=== PATIENT | female | born 1980 | race Caucasian/White ===

== ENCOUNTER 2017-03-29 00:15 | Emergency (ER) | payer OTHER ==
[~2017-03-29] VITALS: Ht 170.1 cm; Wt 95.3 kg
[~2017-03-29 00:15] MED LIST: AUGMENTIN 875 M1 TAB PO; TRAMADOL HCL50 MG PO
[2017-03-29 00:26] VITALS: BP 131/89
[2017-03-29] MEDS ORDERED: KEFLEX500 M1 PO (01:21)
[2017-03-29] MEDS ORDERED: PREDNISONE20 M1 PO (01:21)
[2017-03-29] MEDS ORDERED: ULTRAM50 MG PO (01:28)
== END 2017-03-29 02:21 | disposition home or self-care (01) ==
LOC: ED 00:15
DX: T63.301A Toxic effect of unspecified spider venom, accidental (unintentional), initial encounter (principal); L29.8 Other pruritus; R19.7 Diarrhea, unspecified; R11.0 Nausea; Z91.040 Latex allergy status; Y92.9 Unspecified place or not applicable

== ENCOUNTER 2018-11-17 00:23 | Emergency (ER) | payer OTHER ==
[~2018-11-17] VITALS: Ht 165.1 cm; Wt 108.9 kg
[~2018-11-17 00:23] MED LIST changes: +KEFLEX500 M1 PO; +PREDNISONE20 M1 PO; +ULTRAM50 MG PO
[2018-11-17 00:25] VITALS: BP 165/90
[2018-11-17] MEDS ORDERED: LEVOTHYROXINE175 MCG PO (01:14)
[2018-11-17] MEDS ORDERED: NAPROSYN500 MG PO (01:46)
[2018-11-17] MEDS ORDERED: MEDROL DOSEPAK4 MG PO (01:46)
[2018-11-17] MEDS ORDERED: CYCLOBENZAPRINE10 MG PO (01:46)
== END 2018-11-17 02:43 | disposition home or self-care (01) ==
LOC: ED 00:23
DX: M54.16 Radiculopathy, lumbar region (principal); M54.6 Pain in thoracic spine; Z90.49 Acquired absence of other specified parts of digestive tract; Z98.890 Other specified postprocedural states; Z79.899 Other long term (current) drug therapy; X50.0XXA Overexertion from strenuous movement or load, initial encounter; Y93.89 Activity, other specified; Y92.69 Other specified industrial and construction area as the place of occurrence of the external cause; Y99.9 Unspecified external cause status

== ENCOUNTER 2019-04-03 18:52 | Emergency (ER) | payer OTHER ==
[~2019-04-03] VITALS: Ht 165.1 cm; Wt 102.1 kg
[~2019-04-03 18:52] MED LIST changes: +CYCLOBENZAPRINE10 MG PO; +LEVOTHYROXINE175 MCG PO; +MEDROL DOSEPAK4 MG PO; +NAPROSYN500 MG PO
[2019-04-03 18:57] VITALS: BP 132/90
[2019-04-03] MEDS ORDERED: AVPAK AZITHROM250 MG PO (19:41)
[2019-04-03] MEDS ORDERED: PROAIR HFA8.5 GM INH (19:41)
[2019-04-03] MEDS ORDERED: ALLEGRA ALLERG180 M2 PO (19:41)
[2019-04-03] MEDS ORDERED: DELTASONE20 M1 PO (19:41)
== END 2019-04-03 20:06 | disposition home or self-care (01) ==
LOC: ED 18:52
DX: J20.9 Acute bronchitis, unspecified (principal); F17.200 Nicotine dependence, unspecified, uncomplicated; Z79.899 Other long term (current) drug therapy

== ENCOUNTER 2019-04-07 09:45 | Emergency (ER) | payer OTHER ==
[~2019-04-07] VITALS: Ht 165.1 cm; Wt 99.8 kg
[~2019-04-07 09:45] MED LIST changes: +ALLEGRA ALLERG180 M2 PO; +AVPAK AZITHROM250 MG PO; +DELTASONE20 M1 PO; +PROAIR HFA8.5 GM INH
[2019-04-07 09:47] VITALS: BP 135/85
[2019-04-07] MEDS ORDERED: ROBITUSSIN DM 105 ML PO (11:32)
== END 2019-04-07 11:37 | disposition home or self-care (01) ==
LOC: ED 09:45
DX: J20.9 Acute bronchitis, unspecified (principal); F17.210 Nicotine dependence, cigarettes, uncomplicated; Z79.899 Other long term (current) drug therapy; Z90.49 Acquired absence of other specified parts of digestive tract

== ENCOUNTER 2019-11-21 02:41 | Inpatient (IN) | payer SELFPAY ==
[~2019-11-21] VITALS: Ht 167.6 cm; Wt 109.4 kg
[2019-11-21] VITALS (8 sets, daily range): BP systolic 100–140; BP diastolic 60–97
[~2019-11-21 02:41] MED LIST changes: +ROBITUSSIN DM 105 ML PO
[2019-11-21 03:19] LABS: BASO % 0.4 % (0.0-1.0); EOS # 0.2 10*3/uL (0.0-0.4); EOS % 3.8 % (1.0-4.0); HEMATOCRIT 43.3 % (37.0-47.0); MEAN CELL VOLUME 87.3 fl (81.0-99.0); MEAN CORPUSCULAR HGB 29.6 pg (27.0-31.0); MEAN CORPUSCULAR HGB CONC 33.9 g/dl (33.0-37.0); MEAN PLATELET VOLUME 9.3 fl (9.6-12.3); MONO # 0.6 10*3/uL (0.1-1.0); MONO % 9.9 % (3.0-9.0); NEUT # 2.8 10*3/uL (2.3-7.9); NEUT % 49.7 % (47.0-73.0); PLATELET COUNT AUTOMATED 234 10*3/uL (130-400); RED BLOOD COUNT 4.96 10*6/uL (4.10-5.10); RED CELL DISTRI WIDTH 12.7 % (0-14.5); WHITE BLOOD COUNT 5.6 10*3/uL (4.8-10.8)
[2019-11-21 03:31] LABS: ACT PARTIAL THROMBO TIME 24.1 SECONDS (20.0-32.1); INTERNATIONAL NORM RATIO 0.9 (2.0-3.5)
[2019-11-21 03:36] LABS: ALBUMIN 3.5 gm/dl (3.1-4.5); ALKALINE PHOSPHATASE 49 U/L (45-117); BUN 11 mg/dl (7-24); CHLORIDE 106 mmol/L (98-107); CREATININE 1.05 mg/dL (0.55-1.02); POTASSIUM 4.4 mmol/L (3.5-5.1); SGOT/AST 24 IU/L (3-35); SGPT/ALT 30 U/L (12-78); SODIUM 137 mmol/L (136-145); TOTAL PROTEIN 7.5 gm/dL (6.4-8.2)
[2019-11-21 03:38] LABS: TROPONIN I 0.051 ng/ml (<0.045)
--- NOTE | 2019-11-21 04:10 | NUR ---
PT TO CT VIA WHEELCHAIR
--- NOTE | 2019-11-21 04:16 | NUR ---
PT RETURNED TO ROOM FROM CT. PLACED ON MONITOR. CALL LIGHT IN REACH. DENIES UNMET NEEDS. WILL CONTINUE TO MONITOR.
--- NOTE | 2019-11-21 06:42 | NUR ---
PT TO BE ADMITTED TO 5TH FLOOR, CAN TAKE PATIENT UP AFTER SHIFT CHANGE PER 5TH FLOOR RN. PT AWARE, DENIES UNMET NEEDS. CONTINUES TO REST ON CART WITH EVEN/UNLABORED RESPIRATIONS. CALL LIGHT IN REACH. WILL CONTINUE TO MONITOR.
[2019-11-21 06:59] LABS: LDH 158 U/L (84-246)
--- NOTE | 2019-11-21 07:10 | NUR ---
Transfer of care from [facility]
--- NOTE | 2019-11-21 07:25 | NUR ---
In to see pt at this time.Pt states she is doing ok and has 20 gauge in right arm.
--- NOTE | 2019-11-21 08:00 | NUR ---
A 39, admitted to 5E, under the services of CHARLIE Castillo DO with a diagnosis of SUSPECTED COVID-19 VIRUS INFECTION. Chief complaint is SOB, FEVERS, CHEST PAIN, NAUSEA, BACK PAIN, AND HEADACHE. Patient arrived via stretcher from ER. Monitor applied. Initial assessment completed. Vital signs taken and recorded. CHARLIE CASTILLO DO notified of admission to the unit. Orders received. See assessment for past medical history, medications and allergies. Patient and/or family oriented to unit. [address] visitation policy reviewed. Clothing/patient valuable form completed. PT RESTING COMFORTABLY BUT HAS COMPLAINTS OF CHEST PAIN/SOB ON EXERTION. LUNGS DIMINISHED BILATERALLY. PT HAS NO WOUNDS PRESENT ON ADMISSION. PT'S IV IN RAC IS C/D/I. MONITOR WAS APPLIED AND SHE IS NSR WITH A HR IN THE 80'S. PT WAS ORIENTED TO ROOM AND UPDATED ON PLAN OF CARE AT THIS TIME. PT'S QUESTIONS WERE ANSWERED AT THIS TIME. JOSH RAMIREZ
--- NOTE | 2019-11-21 09:23 | NUR ---
PLACED CONSULT OUT TO DR. WATERS.
--- NOTE | 2019-11-21 10:00 | NUR ---
DR. BREWER CONSULT IS COMPLETED.
--- NOTE | 2019-11-21 12:52 | NUR ---
CALLED OUT CONSULT TO DR. GOMEZ.
--- NOTE | 2019-11-21 14:07 | NUR ---
CALLED AND NOTIFIED DR. HAYNES OF PT'S TROPONIN- 0.049.
[2019-11-21 14:28] LABS: ABG BASE EXCESS -1.6 mmol/L (-2.0-2.0); ARTERIAL BLOOD GAS PH 7.433 (7.35-7.45)
--- NOTE | 2019-11-21 17:07 | NUR ---
24 HR chart check completed.
--- NOTE | 2019-11-21 21:41 | NUR ---
PATIENT IS AAOX3 RESTING IN BED WITH EASY AND REGULAR RESPERS ON ROOM AIR. ASSESSMENT IS COMPLETE WITH NO C/O OR S/S OF DISTRESS NOTED AT THIS TIME. BED IS LOW, LOCKED, AND CALL LIGHT IS WITHIN REACH. VITALS OBTAINED AND TYLENOL GIVEN FOR HEADACHE, PATIENT TOLERATED WELL. WILL CONTINUE TO MONITOR, SEE SHIFT ASSESSMENT.
[2019-11-22] VITALS: BP 122/97
--- NOTE | 2019-11-22 | NUR ---
NO S/S OF DISTRESS OR C/O NOTED AT THIS TIME. CALL LIGHT IS WITHIN REACH.
--- NOTE | 2019-11-22 02:00 | NUR ---
PATIENT APPEARS TO BE RESTING COMFORTABLY ON SURVEILLANCE. CALL LIGHT IS WITHIN REACH.
--- NOTE | 2019-11-22 03:49 | NUR ---
CHART CHECK COMPLETE.
[2019-11-22 04:00] VITALS: BP 106/73
[2019-11-22 06:02] LABS: ALBUMIN 3.5 gm/dl (3.1-4.5); ALKALINE PHOSPHATASE 50 U/L (45-117); BUN 10 mg/dl (7-24); CHLORIDE 107 mmol/L (98-107); CHOLESTEROL 165 mg/dL (<200); CPK 32 U/L (26-192); HDL CHOLESTEROL 45 mg/dl (40-60); LDL CHOLESTEROL 98 mg/dL (9-159); POTASSIUM 3.8 mmol/L (3.5-5.1); SGOT/AST 14 IU/L (3-35); SGPT/ALT 27 U/L (12-78); SODIUM 138 mmol/L (136-145); TRIGLYCERIDES 111 mg/dl (<150); VLDL CHOLESTEROL 22 mg/dL (6-40)
[2019-11-22 06:03] LABS: CHOLESTEROL 167 mg/dL (<200); HDL CHOLESTEROL 45 mg/dl (40-60); LDL CHOLESTEROL 99 mg/dL (9-159); TRIGLYCERIDES 114 mg/dl (<150); VLDL CHOLESTEROL 23 mg/dL (6-40)
[2019-11-22 06:26] LABS: BASO % 0.5 % (0.0-1.0); EOS # 0.1 10*3/uL (0.0-0.4); HEMATOCRIT 43.2 % (37.0-47.0); LYMPH # 1.7 10*3/uL (1.3-4.4); LYMPH % 43.1 % (27.0-41.0); MEAN CELL VOLUME 88.2 fl (81.0-99.0); MEAN CORPUSCULAR HGB 29.2 pg (27.0-31.0); MEAN CORPUSCULAR HGB CONC 33.1 g/dl (33.0-37.0); MEAN PLATELET VOLUME 9.6 fl (9.6-12.3); MONO # 0.4 10*3/uL (0.1-1.0); MONO % 10.3 % (3.0-9.0); NEUT # 1.7 10*3/uL (2.3-7.9); NEUT % 42.8 % (47.0-73.0); PLATELET COUNT AUTOMATED 246 10*3/uL (130-400); RED CELL DISTRI WIDTH 12.9 % (0-14.5)
[2019-11-22 07:07] LABS: HEP B CORE AB, IGM Negative (Negative); HEPATITIS B SURFACE AG Negative (Negative); HEPATITIS C AB <0.1 (0.0-0.9); HEPATITIS C VIRUS ANTIBODY <0.1 s/co (0.0-0.9)
[2019-11-22 08:00] VITALS: BP 113/69
--- NOTE | 2019-11-22 10:36 | NUR ---
NOTIFIED DR HAYNES PT QTC 0.527. ORDER RECIEVED FOR EKG.
[2019-11-22 12:00] VITALS: BP 119/73
--- NOTE | 2019-11-22 12:16 | NUR ---
TYLENOL 650 MG GIVEN FOR C/O H/A, 01/13.
--- NOTE | 2019-11-22 15:11 | NUR ---
DR BREWER ROUNDED,ORDERS RECIEVED TO RESTART PLAQUENIL AND ZITHROMAX PO PER DR BREWER'S ORDER.
[2019-11-22 16:00] VITALS: BP 98/50
--- NOTE | 2019-11-22 17:30 | NUR ---
SPOKE TO DR BARRERA. VITALS REPORTED. PT TEMP 103.1 TYPHANIC. BP 115/79,HR 100, SPO2 95% ON 2LNC,RR 18. PT STABLE. DENIES ANY COMPLAINTS. SITTING UP IN BED EATING DINNER AND WATCHING HOCKEY GAME. PER DR BARRERA PT IS BEING TREATED. NO B/C ORDERED D/T JUST BEING DONE. CONTINUE TYLENOL Q4.NOTIFY DR BARRERA IF PT CONTINUES TO RUN TYEMP CONSISTENLY GREATER THAN 102.
[2019-11-22 20:00] VITALS: BP 112/69
--- NOTE | 2019-11-22 20:30 | NUR ---
PATIENT IS AAOX3 RESTING IN BED WITH EASY AND REGULAR RESPERS ON ROOM AIR. ASSESSMENT IS COMPLETE WITH NO S/S OF DISTRESS NOTED AT THIS TIME. PATIENT C/O CHEST "FLUTTERING" BUT DENIES CP/PRESSURE. VITALS OBTAINED AND STABLE. BED IS LOW, LOCKED, ALARMED, AND CALL LIGHT IS WITHIN REACH. WILL CONTINUE TO MONITOR, SEE SHIFT ASSESSMENT.
--- NOTE | 2019-11-22 21:21 | NUR ---
24 HR. CHART CHECK COMPLETE.
--- NOTE | 2019-11-22 22:30 | NUR ---
RECEIPT AND REPORT CLERK CALLED TO INFORM RN OF RHYTHM CHANGE INTO TRIGEMENY. EKG OBTAINED TO BE NSR. DR. WEBER AWARE.
[2019-11-23] VITALS: BP 116/69
[2019-11-23 06:57] LABS: ALBUMIN 3.4 gm/dl (3.1-4.5); ALKALINE PHOSPHATASE 48 U/L (45-117); BUN 13 mg/dl (7-24); CHLORIDE 108 mmol/L (98-107); CHOLESTEROL 163 mg/dL (<200); CPK 33 U/L (26-192); CREATININE 1.08 mg/dL (0.55-1.02); HDL CHOLESTEROL 42 mg/dl (40-60); LDL CHOLESTEROL 95 mg/dL (9-159); PHOSPHOROUS 3.4 mg/dL (2.5-4.9); POTASSIUM 3.9 mmol/L (3.5-5.1); SGOT/AST 14 IU/L (3-35); SGPT/ALT 27 U/L (12-78); SODIUM 140 mmol/L (136-145); TOTAL PROTEIN 6.8 gm/dL (6.4-8.2); TRIGLYCERIDES 128 mg/dl (<150); VLDL CHOLESTEROL 26 mg/dL (6-40)
[2019-11-23 07:49] LABS: BASO % 0.5 % (0.0-1.0); EOS # 0.2 10*3/uL (0.0-0.4); EOS % 4.7 % (1.0-4.0); HEMATOCRIT 41.2 % (37.0-47.0); LYMPH # 1.9 10*3/uL (1.3-4.4); MEAN CELL VOLUME 88.2 fl (81.0-99.0); MEAN CORPUSCULAR HGB 29.6 pg (27.0-31.0); MEAN CORPUSCULAR HGB CONC 33.5 g/dl (33.0-37.0); MEAN PLATELET VOLUME 9.3 fl (9.6-12.3); MONO # 0.5 10*3/uL (0.1-1.0); MONO % 12.2 % (3.0-9.0); NEUT # 1.5 10*3/uL (2.3-7.9); NEUT % 36.6 % (47.0-73.0); PLATELET COUNT AUTOMATED 221 10*3/uL (130-400); RED BLOOD COUNT 4.67 10*6/uL (4.10-5.10); RED CELL DISTRI WIDTH 12.9 % (0-14.5)
[2019-11-23 08:00] VITALS: BP 101/60
[2019-11-23 12:00] VITALS: BP 106/64
--- NOTE | 2019-11-23 12:03 | NUR ---
MEDICATED WITH PRN ATIVAN PER ORDERS.
[2019-11-23 16:00] VITALS: BP 104/66
[2019-11-23 20:00] VITALS: BP 113/65
--- NOTE | 2019-11-23 20:40 | NUR ---
PATIENT IS AAOX3 RESTING IN BED WITH EASY AND REGULAR RESPERS ON ROOM AIR. ASSESSMENT IS COMPLETE WITH NO C/O OR S/S OF DISTRESS NOTED AT THIS TIME. BED IS LOW, LOCKED, AND CALL LIGHT IS WITHIN REACH. VITALS OBTAINED AND NORCO GIVEN FOR HEADACHE, PATIENT TOLERATED WELL. WILL CONTINUE TO MONITOR, SEE SHIFT ASSESSMENT.
--- NOTE | 2019-11-23 22:00 | NUR ---
NORCO EFFECTIVE PER PATIENT. CALL LIGHT IS WIHTIN REACH, WILL CONTINUE TO MONITOR.
[2019-11-24] VITALS: BP 108/74
[2019-11-24 04:00] VITALS: BP 111/71
[2019-11-24 05:04] LABS: BASO % 0.4 % (0.0-1.0); EOS # 0.2 10*3/uL (0.0-0.4); EOS % 4.4 % (1.0-4.0); HEMATOCRIT 41.2 % (37.0-47.0); LYMPH # 1.8 10*3/uL (1.3-4.4); LYMPH % 40.4 % (27.0-41.0); MEAN CELL VOLUME 87.7 fl (81.0-99.0); MEAN CORPUSCULAR HGB 29.6 pg (27.0-31.0); MEAN CORPUSCULAR HGB CONC 33.7 g/dl (33.0-37.0); MEAN PLATELET VOLUME 9.3 fl (9.6-12.3); MONO # 0.4 10*3/uL (0.1-1.0); MONO % 8.8 % (3.0-9.0); NEUT # 2.1 10*3/uL (2.3-7.9); NEUT % 45.6 % (47.0-73.0); PLATELET COUNT AUTOMATED 244 10*3/uL (130-400); RED CELL DISTRI WIDTH 12.7 % (0-14.5); WHITE BLOOD COUNT 4.5 10*3/uL (4.8-10.8)
[2019-11-24 05:20] LABS: ALBUMIN 3.4 gm/dl (3.1-4.5); ALKALINE PHOSPHATASE 47 U/L (45-117); BUN 12 mg/dl (7-24); CHLORIDE 110 mmol/L (98-107); CHOLESTEROL 152 mg/dL (<200); CREATININE 0.99 mg/dL (0.55-1.02); PHOSPHOROUS 3.4 mg/dL (2.5-4.9); POTASSIUM 3.5 mmol/L (3.5-5.1); SGOT/AST 11 IU/L (3-35); SGPT/ALT 23 U/L (12-78); SODIUM 141 mmol/L (136-145); TOTAL PROTEIN 6.6 gm/dL (6.4-8.2); TRIGLYCERIDES 134 mg/dl (<150); VLDL CHOLESTEROL 27 mg/dL (6-40)
[2019-11-24 05:21] LABS: HDL CHOLESTEROL 40 mg/dl (40-60); LDL CHOLESTEROL 85 mg/dL (9-159)
[2019-11-24 05:22] LABS: CPK 33 U/L (26-192)
[2019-11-24 08:00] VITALS: BP 111/77
[2019-11-24 12:00] VITALS: BP 118/64
--- NOTE | 2019-11-24 12:35 | NUR ---
Rn Appeals in to talk to patient. Patient states lives at HOME with HER BOTHER AND HER SONS. There are NO steps in the home. Physician: [facility]: [facility] Home health services: NONE Patient's level of ADLs: INDEPENDENT Patient has working utilities: YES DME: NONE Follow-up physician's appointment after d/c: PREFERS TO MAKE OWN AFTER DISCHARGE Does patient want to access PORTAL?: NO Discharge plan PT LIVES AT HOME WITH FAMILY AND IS INDEPENDENT IN HER CARE. DENIES SHE WILL HAVE ANY NEEDS ON DISCHARGE. PLANS TO RETURN HOME WHEN MEDICALLY STABLE. WILL CONTINUE TO FOLLOW. PT STATES SHE DROVE HERSELF HER AND WILL TAKE HERSELF HOME WHEN DISCHARGED.. CECILE NEVAREZ
[2019-11-24] MEDS ORDERED: LEVOTHYROXINE200 MC2 PO (14:29)
--- NOTE | 2019-11-24 15:40 | NUR ---
Discharge instructions reviewed with patient/family. Patient receptive and verbalizes understanding. Follow-up care arranged. Written instructions given to patient/family. HEPLOCK DISCONTINUED. TRAMPOLINE TEAM COACH REMOVED. EDUCATED PATIENT REGARDING COVID-19 & QUARANTINE OF ENTIRE HOUSEHOLD. PRESCRIPTION GIVEN & PT AWARE TO CALL PHARMACY WITH DEBIT CARD #. NOHEMI JACOBSON
== END 2019-11-24 15:41 | disposition home or self-care (01) | DRG 177 ==
LOC: ED 02:41 → 5E 06:02 → EDHOLD 06:02 → 5E 07:16
PROVIDERS: Emergency Medicine; Internal Medicine; Internal Medicine Cardiovascular Disease; Internal Medicine Critical Care Medicine; ADMIT Internal Medicine
DX: U07.1 COVID-19 (principal); N17.0 Acute kidney failure with tubular necrosis; J12.89 Other viral pneumonia; E44.1 Mild protein-calorie malnutrition; I24.8 Other forms of acute ischemic heart disease; E03.8 Other specified hypothyroidism; E06.3 Autoimmune thyroiditis; E66.9 Obesity, unspecified; D72.819 Decreased white blood cell count, unspecified; I34.0 Nonrheumatic mitral (valve) insufficiency; R79.82 Elevated C-reactive protein (CRP); I28.8 Other diseases of pulmonary vessels; E83.41 Hypermagnesemia; Z68.39 Body mass index [BMI] 39.0-39.9, adult; Z98.891 History of uterine scar from previous surgery; Z83.3 Family history of diabetes mellitus; Z90.49 Acquired absence of other specified parts of digestive tract; Z82.49 Family history of ischemic heart disease and other diseases of the circulatory system; Z79.899 Other long term (current) drug therapy

== ENCOUNTER 2020-05-15 06:50 | Emergency (ER) | payer SELFPAY ==
[~2020-05-15] VITALS: Ht 170.1 cm; Wt 104.3 kg
[~2020-05-15 06:50] MED LIST changes: +LEVOTHYROXINE200 MC2 PO
[2020-05-15 07:12] VITALS: BP 126/88
[2020-05-15] MEDS ORDERED: Motrin,Rufen800 MG PO (08:48)
== END 2020-05-15 09:18 | disposition home or self-care (01) ==
LOC: ED 06:50
DX: S60.222A Contusion of left hand, initial encounter (principal); Z79.899 Other long term (current) drug therapy; X58.XXXA Exposure to other specified factors, initial encounter; Y93.89 Activity, other specified; Y92.89 Other specified places as the place of occurrence of the external cause; Y99.8 Other external cause status

== ENCOUNTER 2021-01-17 06:04 | Emergency (ER) | payer OTHER ==
[~2021-01-17] VITALS: Ht 170.1 cm; Wt 108.9 kg
[~2021-01-17 06:04] MED LIST changes: +Motrin,Rufen800 MG PO
[2021-01-17 06:27] VITALS: BP 157/90
[2021-01-17] MEDS ORDERED: NAPROSYN500 MG PO (06:30)
[2021-01-17] MEDS ORDERED: METHOCARBAMOL750 M1 PO (06:30)
== END 2021-01-17 06:42 | disposition home or self-care (01) ==
LOC: ED 06:04
DX: S16.1XXA Strain of muscle, fascia and tendon at neck level, initial encounter (principal); S39.012A Strain of muscle, fascia and tendon of lower back, initial encounter; X58.XXXA Exposure to other specified factors, initial encounter; Y93.89 Activity, other specified; Y92.89 Other specified places as the place of occurrence of the external cause; Y99.8 Other external cause status

== ENCOUNTER 2021-05-30 09:14 | Emergency (ER) | payer OTHER ==
[~2021-05-30 09:14] MED LIST changes: +METHOCARBAMOL750 M1 PO
== END 2021-05-30 11:33 | disposition left against medical advice (07) ==
LOC: ED 09:14
DX: M54.50 Low back pain, unspecified (principal); Z53.21 Procedure and treatment not carried out due to patient leaving prior to being seen by health care provider

== ENCOUNTER → 2021-08-24 | Outpatient (CLI) | payer OTHER ==
[2021-08-24 10:36] LABS: THYROID STIM HORMONE (HS) 66.7 uIU/ml (0.358-4.75); THYROXINE (T4) TOTAL 8.1 ug/dl (4.8-13.9)
== END | disposition home or self-care (01) ==
LOC: LAB 08:18 → US 08:30
PROVIDERS: ATTEND Nurse Practitioner Family
DX: E06.3 Autoimmune thyroiditis (principal)

== ENCOUNTER → 2022-01-11 | Outpatient (CLI) | payer OTHER | END | disposition home or self-care (01) | LOC: US 15:56 | PROVIDERS: ATTEND Nurse Practitioner Women's Health | DX: N85.8 Other specified noninflammatory disorders of uterus (principal) ==

== ENCOUNTER 2022-01-21 03:34 | Emergency (ER) | payer OTHER ==
[~2022-01-21] VITALS: Ht 160 cm; Wt 93.0 kg
[2022-01-21 03:40] VITALS: BP 153/88
== END 2022-01-21 04:02 | disposition home or self-care (01) ==
LOC: ED 03:34
DX: J02.9 Acute pharyngitis, unspecified (principal); Z90.49 Acquired absence of other specified parts of digestive tract; Z98.890 Other specified postprocedural states

== ENCOUNTER 2022-03-13 21:02 | Emergency (ER) | payer OTHER ==
[~2022-03-13] VITALS: Wt 108.9 kg
[2022-03-13 21:32] VITALS: BP 132/87
== END 2022-03-13 23:11 | disposition home or self-care (01) ==
LOC: ED 21:02
DX: S93.402A Sprain of unspecified ligament of left ankle, initial encounter (principal); S89.92XA Unspecified injury of left lower leg, initial encounter; Z79.899 Other long term (current) drug therapy; Z90.49 Acquired absence of other specified parts of digestive tract; Z98.890 Other specified postprocedural states; W18.09XA Striking against other object with subsequent fall, initial encounter; Y93.89 Activity, other specified; Y92.89 Other specified places as the place of occurrence of the external cause; Y99.8 Other external cause status

== ENCOUNTER 2022-11-16 05:54 | Emergency (ER) | payer OTHER ==
[~2022-11-16] VITALS: Ht 165.1 cm; Wt 108.9 kg
[2022-11-16 06:06] VITALS: BP 119/61
[2022-11-16] MEDS ORDERED: PREDNISONE10 MG PO (07:13)
== END 2022-11-16 07:15 | disposition home or self-care (01) ==
LOC: ED 05:54
DX: S96.911A Strain of unspecified muscle and tendon at ankle and foot level, right foot, initial encounter (principal); L25.9 Unspecified contact dermatitis, unspecified cause; Z68.30 Body mass index [BMI] 30.0-30.9, adult; E03.9 Hypothyroidism, unspecified; Z90.49 Acquired absence of other specified parts of digestive tract; Z98.890 Other specified postprocedural states; X58.XXXA Exposure to other specified factors, initial encounter; Y93.89 Activity, other specified; Y92.89 Other specified places as the place of occurrence of the external cause; Y99.8 Other external cause status

== ENCOUNTER 2022-12-15 13:47 | Emergency (ER) | payer OTHER ==
[~2022-12-15] VITALS: Wt 108.9 kg
[~2022-12-15 13:47] MED LIST changes: +PREDNISONE10 MG PO
[2022-12-15 13:56] VITALS: BP 145/84
[2022-12-15 14:14] LABS: BASO % 0.7 % (0.0-1.0); EOS # 0.3 10*3/uL (0.0-0.4); EOS % 4.8 % (1.0-4.0); HEMATOCRIT 42.7 % (37.0-47.0); LYMPH % 34.4 % (27.0-41.0); MEAN CELL VOLUME 86.3 fl (81.0-99.0); MEAN CORPUSCULAR HGB 29.1 pg (27.0-31.0); MEAN CORPUSCULAR HGB CONC 33.7 g/dl (33.0-37.0); MONO # 0.8 10*3/uL (0.1-1.0); MONO % 13.1 % (3.0-9.0); NEUT # 2.8 10*3/uL (2.3-7.9); NEUT % 46.8 % (47.0-73.0); PLATELET COUNT AUTOMATED 269 10*3/uL (130-400); RED BLOOD COUNT 4.95 10*6/uL (4.10-5.10); RED CELL DISTRI WIDTH 12.8 % (0-14.5); WHITE BLOOD COUNT 5.9 10*3/uL (4.8-10.8)
[2022-12-15 14:56] LABS: ALKALINE PHOSPHATASE 53 U/L (46-116); BUN 8 mg/dl (9-23); CHLORIDE 108 mmol/L (98-107); POTASSIUM 3.5 mmol/L (3.4-5.1); SGPT/ALT 33 U/L (10-49); TOTAL PROTEIN 6.8 gm/dL (6.0-8.0)
[2022-12-15] MEDS ORDERED: REGLAN10 M1 PO (15:36)
[2022-12-15] MEDS ORDERED: AMOX-CLAV 875-1 EACH PO (15:36)
== END 2022-12-15 16:06 | disposition home or self-care (01) ==
LOC: ED 13:47
PROVIDERS: Emergency Medicine
DX: H66.91 Otitis media, unspecified, right ear (principal); R51.9 Headache, unspecified; R22.1 Localized swelling, mass and lump, neck; Z90.49 Acquired absence of other specified parts of digestive tract; Z98.890 Other specified postprocedural states

== ENCOUNTER 2023-07-08 07:06 | Emergency (ER) | payer OTHER ==
[~2023-07-08] VITALS: Ht 167.6 cm; Wt 113.4 kg
[~2023-07-08 07:06] MED LIST changes: +AMOX-CLAV 875-1 EACH PO; +REGLAN10 M1 PO
[2023-07-08 07:17] VITALS: BP 134/78
[2023-07-08] MEDS ORDERED: AVPAK AZITHROM250 M1 PO (08:06)
[2023-07-08] MEDS ORDERED: REGLAN10 M1 PO (08:06)
[2023-07-08] MEDS ORDERED: IBU800 M1 PO (08:06)
== END 2023-07-08 08:13 | disposition home or self-care (01) ==
LOC: ED 07:06
DX: J40 Bronchitis, not specified as acute or chronic (principal); M79.10 Myalgia, unspecified site; Z90.49 Acquired absence of other specified parts of digestive tract; Z98.890 Other specified postprocedural states

== ENCOUNTER 2024-08-14 11:39 | Emergency (ER) | payer OTHER ==
[~2024-08-14] VITALS: Ht 170.1 cm; Wt 108.9 kg
[~2024-08-14 11:39] MED LIST changes: +AVPAK AZITHROM250 M1 PO; +IBU800 M1 PO
[2024-08-14 12:04] VITALS: BP 144/87
[2024-08-14] MEDS ORDERED: IBUPROFEN 800 MG TAB PO ONE (13:20)
== END 2024-08-14 13:40 | disposition home or self-care (01) ==
LOC: ED 11:39
DX: I73.00 Raynaud's syndrome without gangrene (principal); M72.2 Plantar fascial fibromatosis; Z90.49 Acquired absence of other specified parts of digestive tract; Z98.890 Other specified postprocedural states

== ENCOUNTER 2025-02-11 10:19 | Emergency (ER) | payer OTHER ==
[~2025-02-11] VITALS: Ht 170.1 cm; Wt 108.9 kg
[2025-02-11 10:25] VITALS: BP 133/85
[2025-02-11] MEDS ORDERED: Dexamethasone Sodium Phospha 20 MG/5 ML VIAL IM ONE (11:05)
[2025-02-11] MEDS ORDERED: diazePAM 5 MG TAB PO ONE (11:10)
[2025-02-11] MEDS ORDERED: METHOCARBAMOL750 M1 PO (12:08)
[2025-02-11] MEDS ORDERED: PREDNISONE20 M1 PO (12:08)
[2025-02-11] MEDS ORDERED: NAPROSYN500 MG PO (12:08)
== END 2025-02-11 12:13 | disposition home or self-care (01) ==
LOC: ED 10:19
DX: S16.1XXA Strain of muscle, fascia and tendon at neck level, initial encounter (principal); M62.838 Other muscle spasm; M19.011 Primary osteoarthritis, right shoulder; Z79.899 Other long term (current) drug therapy; Z90.49 Acquired absence of other specified parts of digestive tract; Z98.890 Other specified postprocedural states; X58.XXXA Exposure to other specified factors, initial encounter; Y93.89 Activity, other specified; Y92.89 Other specified places as the place of occurrence of the external cause; Y99.8 Other external cause status